=== PATIENT | female | born 1990 | race Asian ===

== ENCOUNTER 2017-02-11 15:34 | Emergency (ER) | payer OTHER ==
[2017-02-11 15:51] VITALS: BP 114/74
[2017-02-11] MEDS ORDERED: IBUPROFEN 600 MG TABLET PO STA (16:27)
--- NOTE | 2017-02-11 16:30 | ED Physician Documentation ---
PD HPI LOWER EXT INJURY - Stated complaint Stated Complaint: RT FOOT PX - Chief complaint Chief Complaint: Ext Problem - History obtained from History obtained from: Patient, Family - History of Present Illness PD HPI LOW EXT INJURY LOCATION: Left, Foot Type of injury: Other (while running) Where injury occurred: [place] Timing - onset: Today Timing - duration: Hours Timing - details: Abrupt onset, Still present Improved by: Rest, Immobilization Worsened by: Moving, Palpating Associated symptoms: Swelling, Discolored. No: Weakness, Numbness, Tingling Contributing factors: No: Anticoagulated Similar symptoms before: Has not had sx before Recently seen: Not recently seen - Additional information Additional information: 26-year-old female was out on her run today with her when she went from a concrete surface to a grass surface she felt some uneven ground and felt a snap in her foot. She has pain in the distal fifth metatarsal area and the area is very tender there is some redness to the area as well. This area was not red yesterday. Review of Systems Constitutional: denies: Fever Respiratory: denies: Cough GI: denies: Vomiting : denies: Discharge Skin: denies: Rash Musculoskeletal: reports: Extremity pain, Pain with weight bearing. denies: Neck pain, Back pain Neurologic: denies: Generalized weakness, Focal weakness, Numbness PD PAST MEDICAL HISTORY - Past Medical History Past Medical History: No - Past Surgical History Past Surgical History: No - Present Medications Home Medications: Ambulatory Orders Medication Instructions Recorded Confirmed Norethindrone [Nitza-Be] 0.35 mg PO DAILY 02/11/17 02/11/17 - Allergies Allergies/Adverse Reactions: Allergies Allergy/AdvReac Type Severity Reaction Status Date / Time No Known Drug Allergies Allergy Verified 02/11/17 15:51 - Social History Does the pt smoke?: No Smoking Status: Never smoker - Immunizations Immunizations are current?: Yes PD ED PE NORMAL - Vitals Vital signs reviewed: Yes (normal ) - General General: No acute distress, Well developed/nourished - HEENT HEENT: Atraumatic - Respiratory Respiratory: No respiratory distress - Derm Derm: Normal color, Warm and dry, No rash - Extremities Extremities: Other (There is swelling and tenderness to the distal 5th MT with some surrounding erythema. There is no crepitance and the area appears inflammed. ) - Neuro Neuro: No motor deficit, No sensory deficit - Psych Psych: Normal mood, Normal affect Results - Vitals Vitals: Vital Signs - 24 hr 02/11/17 15:49 Temperature 36.5 C Heart Rate 99 Respiratory 16 Rate Blood Pressure 114/74 O2 Saturation 99 Oxygen O2 Source Room air - Rads (name of study) Right foot Radiology: Prelim report reviewed (Impression: Normal foot radiography.), EMP read indepedently, See rad report Procedures - Splint (location) Right foot Splint applied by: Tech Type of splint: Fiberglass, Posterior Other: Patient tolerated well, No complications, Neurovascular intact, Good alignment, Crutches provided PD MEDICAL DECISION MAKING - ED course Complexity details: reviewed results, re-evaluated patient, considered differential, d/w patient, d/w family ED course: 26-year-old female running on uneven ground has sprained her right foot. She has pain to the right lateral aspect of the foot with some tenderness and erythema over the distal metatarsal on that side.She is placed into a posterior splint and onto crutches and is expected to wear this for 1-5 days. Departure - Departure Disposition: 01 Home, Self Care Clinical Impression: Foot sprain Qualifiers: Encounter type: initial encounter Laterality: right Qualified Code(s): S93.601A - Unspecified sprain of right foot, initial encounter Condition: Stable Instructions: ED Sprain Foot Follow-Up: [facility] [Provider Group] Forms: Activity restrictions
[2017-02-11] MEDS ORDERED: IBUPROFEN 600 MG TABLET PO ONE (16:31)
--- NOTE | 2017-02-11 16:39 | XRAY Preliminary Report ---
Exam: XR Foot 3 View RT IMPRESSION: Normal foot radiography. [facility] SITE ID: [id number]
--- NOTE | 2017-02-11 16:41 | XRAY Report ---
EXAM: RIGHT FOOT RADIOGRAPHY EXAM DATE: 02/11/2017 04:13 PM. CLINICAL HISTORY: Pain while running in lateral r foot. COMPARISON: None. TECHNIQUE: 3 views. FINDINGS: Bones: Normal. No fractures or bone lesions. Joints: Normal. No subluxations. Soft Tissues: Normal. No soft tissue swelling. IMPRESSION: Normal foot radiography. [facility] Referring Provider Line: [phone] SITE ID: [id number]
== END 2017-02-11 17:04 | disposition home or self-care (01) ==
LOC: ED 15:34
DX: S93.601A Unspecified sprain of right foot, initial encounter (principal); X50.0XXA Overexertion from strenuous movement or load, initial encounter; Y93.02 Activity, running; Y92.89 Other specified places as the place of occurrence of the external cause
CPT/HCPCS: 29515; 73630; 99283; A9270

== ENCOUNTER 2017-08-25 00:52 | Emergency (ER) | payer OTHER ==
--- NOTE | 2017-08-25 01:49 | ED Physician Documentation ---
PD HPI FEMALE - Stated complaint Stated Complaint: FEMALE /8 WKS PREG - Chief complaint Chief Complaint: Abd Pain - History obtained from History obtained from: Patient - History of Present Illness Timing - onset: How many hours ago (1) Timing - duration: Hours (1) Timing - details: Abrupt onset, Still present (onset of vaginal bleeding and some cramps. Soaked a pad the first hour and is on second pad here.) Associated symptoms: Pelvic pain, Vaginal bleeding. 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 No: Miscarriage(s) Review of Systems Constitutional: denies: Fever, Chills Nose: denies: Rhinorrhea / runny nose, Congestion Throat: denies: Sore throat Cardiac: denies: Chest pain / pressure Respiratory: denies: Dyspnea, Cough GI: reports: Nausea. denies: Abdominal Pain, Vomiting, Diarrhea : denies: Dysuria, Frequency Skin: denies: Rash, Lesions Neurologic: denies: Generalized weakness, Near syncope, Altered mental status, Headache PD PAST MEDICAL HISTORY - Past Medical History Past Medical History: No Neuro: None Endocrine/Autoimmune: None HAT CONDITIONER: None : None Other Past Medical History: G6PD blood disorder - Past Surgical History Past Surgical History: No - Present Medications Home Medications: Ambulatory Orders Medication Instructions Recorded Confirmed Norethindrone [Nitza-Be] 0.35 mg PO DAILY 02/11/17 02/11/17 - Allergies Allergies/Adverse Reactions: Allergies Allergy/AdvReac Type Severity Reaction Status Date / Time No Known Drug Allergies Allergy Verified 02/11/17 15:51 - Social History Does the pt smoke?: No Smoking Status: Never smoker Does the pt drink ETOH?: No Does the pt have substance abuse?: No - Immunizations Immunizations are current?: Yes - POLST Patient has POLST: No PD ED PE NORMAL - Vitals Vital signs reviewed: Yes (tachycardic initially) - General General: Alert and oriented X 3, No acute distress, Well developed/nourished - Neck Neck: Supple, no meningeal sign, No adenopathy - Cardiac Cardiac: RRR (fast heart rate), No murmur - Respiratory Respiratory: Clear bilaterally - Abdomen Abdomen: Normal bowel sounds, Soft, Non distended, No organomegaly, Other (mild tenderness low abd suprapubic area. Bedside U/S showing IUP at 7.2 weeks, no free fluid. No noted FHB but could related to early dates. Looked like some clots in the uterus. ) - Female Female : Deferred - Rectal Rectal: Deferred - Derm Derm: Normal color, Warm and dry - Neuro Neuro: Alert and oriented X 3, No motor deficit, Normal speech Results - Vitals Vitals: Vital Signs - 24 hr 08/25/17 08/25/17 08/25/17 01:08 03:12 04:36 Temperature 37.5 C 36.7 C Heart Rate 122 H 70 70 Respiratory 20 18 16 Rate Blood Pressure 161/87 H 101/63 105/82 H O2 Saturation 96 96 99 Oxygen O2 Source Room air - Labs Labs: Laboratory Tests 08/25/17 08/25/17 00:00 00:00 WBC 8.9 RBC 5.14 Hgb 11.4 L Hct 37.0 MCV 71.9 L MCH 22.1 L MCHC 30.8 L RDW 14.0 Plt Count 289 MPV 8.1 Neut # 7.4 H Lymph # 0.9 L [place] # 0.5 Eos # 0.1 Baso # 0.0 Absolute Nucleated RBC 0.00 Nucleated RBC % 0.0 HCG, Quant 77076.00 PD MEDICAL DECISION MAKING - ED course Complexity details: reviewed results (labs show good H/H. Bedside U/S showing IUP with size 7.2 weeks. No heart beat seen but early by dates for bedside U/S. Some apparent clots in uterus. No free fluid. ), considered differential, d/w patient, d/w guidance consultant (tried contacting [facility] but no answer on their service. Talked with Dr. Collado who felt patient could be discharged with precautions about returning if worse or persistent bleeding, fever, pain increased. Otherwise recheck OB in 2 days. ) Departure - Departure Disposition: Home, Self Care Clinical Impression: Vaginal bleeding affecting early , Threatened miscarriage in early Condition: Stable Record reviewed to determine appropriate education?: Yes Instructions: ED Miscarriage Poss Follow-Up: [facility] [Provider Group] Comments: Drink lots of fluids. Tylenol every 4 hours if needed for pain. If the bleeding decreases to minimal or none over the next 6-8 hours or so then just follow-up with OB on Sunday. If you have continued bleeding at the current rate for a day or more or if you feel lightheaded then return here for recheck. Return sooner if you have increased amount of bleeding, fevers, vomiting, lightheadedness, significant pain, other concerns. Discharge Date/Time: 08/25/17 04:41
[2017-08-25] MEDS ORDERED: ACETAMINOPHEN 325 MG TABLET PO STA (02:24)
[2017-08-25] MEDS ORDERED: ONDANSETRON ODT 4 MG TABLET TL STA (02:24)
[2017-08-25 02:32] LABS: BASOPHILS % (AUTO) 0.5 %; EOSINOPHILS # (AUTO) 0.1 10^3/uL (0.0-0.7); EOSINOPHILS % (AUTO) 1.1 %; HGB - HEMOGLOBIN 11.4 g/dL (12.0-16.0); LYMPHOCYTES # (AUTO) 0.9 10^3/uL (1.5-3.5); LYMPHOCYTES % (AUTO) 10.3 %; MEAN CORPUSCULAR HEMOGLOBIN 22.1 pg (27.0-31.0); MEAN CORPUSCULAR HGB CONC 30.8 g/dL (32.0-36.0); MEAN CORPUSCULAR VOLUME 71.9 fL (81.0-99.0); MEAN PLATELET VOLUME 8.1 fL (7.9-10.8); MONOCYTES # (AUTO) 0.5 10^3/uL (0.0-1.0); MONOCYTES % (AUTO) 5.4 %; NEUTROPHILS # (AUTO) 7.4 10^3/uL (1.5-6.6); NEUTROPHILS % (AUTO) 82.7 %; PLT - PLATELET COUNT 289 10^3/uL (130-450); RED BLOOD COUNT 5.14 10^6/uL (4.20-5.40); WHITE BLOOD COUNT 8.9 x10^3/uL (4.8-10.8)
[2017-08-25] MEDS ORDERED: SODIUM CHLORIDE 0.9% 1,000 ML IV ONE (02:39)
[2017-08-25 04:38] VITALS: BP 105/82
== END 2017-08-25 04:41 | disposition home or self-care (01) ==
LOC: ED 00:52
DX: O20.0 Threatened abortion (principal); Z3A.08 8 weeks gestation of pregnancy
CPT/HCPCS: 36415; 84702; 85025; 96360; 99283; A9270; Q0162

== ENCOUNTER 2018-10-07 10:22 | Emergency (ER) | payer OTHER ==
[2018-10-07 10:30] VITALS: BP 127/79
--- NOTE | 2018-10-07 10:39 | ED Physician Documentation ---
PD HPI URI - Stated complaint Stated Complaint: COUGH - Chief complaint Chief Complaint: Resp - History obtained from History obtained from: Patient - History of Present Illness Timing details: Gradual onset Pain level max: 0 Pain level now: 0 Contributing factors: Sick contact - Additional information Additional information: 27-year-old female with a cough for the past week. She states that she had fevers for the first 2 days. None since. Has been feeling very congested still. Worse with lying down and better with standing. People around her have been sick with the flu. Review of Systems Constitutional: denies: Chills Respiratory: reports: Cough. 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 - Past Surgical History Past Surgical History: No - Present Medications Home Medications: Ambulatory Orders Medication Instructions Recorded Confirmed Norethindrone [Nitza-Be] 0.35 mg PO DAILY 02/11/17 02/11/17 Benzonatate [Tessalon Perle] 100 - 200 mg PO TID PRN #30 capsule 10/07/18 Cetirizine HCl/Pseudoephedrine 1 each PO BID PRN #30 tab.er.12h 10/07/18 [Zyrtec-D Tablet] - Allergies Allergies/Adverse Reactions: Allergies Allergy/AdvReac Type Severity Reaction Status Date / Time No Known Drug Allergies Allergy Verified 02/11/17 15:51 - Social History Does the pt smoke?: No Smoking Status: Never smoker Does the pt drink ETOH?: No Does the pt have substance abuse?: No - Immunizations Immunizations are current?: Yes - POLST Patient has POLST: No PD ED PE NORMAL - Vitals Vital signs reviewed: Yes - General General: Alert and oriented X 3, No acute distress, Well developed/nourished - HEENT HEENT: PERRL, Ears normal, Moist mucous membranes, Pharynx benign - Neck Neck: Supple, no meningeal sign - Cardiac Cardiac: RRR, Strong equal pulses - Respiratory Respiratory: No respiratory distress, Clear bilaterally - Abdomen Abdomen: Soft, Non tender, Non distended - Derm Derm: Warm and dry, No rash - Extremities Extremities: No edema - Neuro Neuro: Alert and oriented X 3 - Psych Psych: Normal mood, Normal affect Results - Vitals Vitals: Vital Signs - 24 hr 10/07/18 10:29 Temperature 36.4 C L Heart Rate 85 Respiratory 18 Rate Blood Pressure 127/79 O2 Saturation 98 Oxygen O2 Source Room air PD MEDICAL DECISION MAKING - ED course Complexity details: considered differential, d/w patient ED course: 27-year-old female presents to the emergency department with what appears to be a viral upper respiratory infection. Likely post influenza cough. No evidence of pneumonia. No hypoxia. No respiratory distress. Clear lungs. We will continue supportive care and follow-up with her doctor. Patient counseled regarding signs and symptoms for which I believe and urgent re-evaluation would be necessary. Patient with good understanding of and agreement to plan and is comfortable going home at this time This document was made in part using voice recognition software. While efforts are made to proofread this document, sound alike and grammatical errors may occur. Departure - Departure Disposition: 01 Home, Self Care Clinical Impression: Viral URI Condition: Good Instructions: ED URI Viral Follow-Up: [facility] [Provider Group] - Within 1 week Prescriptions: Benzonatate [Tessalon Perle] 100 - 200 mg PO TID PRN #30 capsule PRN Reason: Cough Cetirizine HCl/Pseudoephedrine [Zyrtec-D Tablet] 1 each PO BID PRN #30 tab.e r.12h PRN Reason: nasal congestion Comments: Drink plenty of fluids and rest. Return if you worsen. Follow-up with your doctor for further care. Forms: Activity restrictions
== END 2018-10-07 11:00 | disposition home or self-care (01) ==
LOC: ED 10:22
DX: J06.9 Acute upper respiratory infection, unspecified (principal)
CPT/HCPCS: 99282; 99283